=== PATIENT | male | born 1960 | race Caucasian/White ===

== ENCOUNTER 2019-09-27 13:04 | Outpatient (CLI) | payer BC ==
--- NOTE | 2019-09-27 16:08 | RAD ---
TWO VIEWS CHEST 09/27/19 COMPARISON: None. HISTORY: Long time smoker, hyponatremia. FINDINGS: Coarse increased linear interstitial density noted bilaterally with pulmonary hyperinflation consiste nt with COPD. There is no pneumothorax or pleural fluid. No focal consolidation or alveolar edema. There is mild hilar prominence on the right. IMPRESSION: Coarse increased linear interstitial density with pulmonary hyperinflation suggesting COPD. Mild pro minence of the right hilar shadow may be vascular in nature. Underlying mass cannot be excluded. Jeremiah mmend follow-up examination with CT of the chest. Code T POS: RAPHAEL
== END 2019-09-27 13:05 | disposition home or self-care (01) ==
LOC: MADRAD 13:04
PROVIDERS: ATTEND Nurse Practitioner Family
DX: F17.200 Nicotine dependence, unspecified, uncomplicated (principal); E87.1 Hypo-osmolality and hyponatremia; R91.8 Other nonspecific abnormal finding of lung field; J98.4 Other disorders of lung
CPT/HCPCS: 71046

== ENCOUNTER 2020-08-24 09:50 | Outpatient (CLI) | payer BC | END 2020-08-24 09:51 | disposition home or self-care (01) | LOC: MADRAD 09:50 | PROVIDERS: ATTEND Internal Medicine Rheumatology | DX: M05.79 Rheumatoid arthritis with rheumatoid factor of multiple sites without organ or systems involvement (principal); M19.041 Primary osteoarthritis, right hand; M19.042 Primary osteoarthritis, left hand ==